=== PATIENT | male | born 1995 | race Caucasian/White ===

== ENCOUNTER 2019-01-01 05:30 | Emergency (ER) | payer BC ==
--- NOTE | 2019-01-01 06:06 | XR ---
EXAM: XR Chest, 2 Views CLINICAL HISTORY: ITS.REASON XR Reason: cough TECHNIQUE: Frontal and lateral views of the chest. COMPARISON: No relevant prior studies available. FINDINGS: Lungs: No consolidation or mass. Pleural space: No effusion. Heart: No cardiomegaly. Mediastinum: Unremarkable. Bones/joints: No acute findings. IMPRESSION: No acute cardiopulmonary process.
--- NOTE | 2019-01-01 06:07 | XR ---
EXAM: XR Abdomen, 1 View CLINICAL HISTORY: ITS.REASON XR Reason: abdominal pain TECHNIQUE: Frontal supine view of the abdomen/pelvis. COMPARISON: No relevant prior studies available. Impression: Gastrointestinal tract: Copious amounts of stool throughout the colon. No dilation. Bones/joints: No acute fracture. No dislocation.
[2019-01-01 06:11] LABS: Basophils # (A) 0.1 k/uL (0-0.2); Basophils % (A) 1 %; Eosinophils # (A) 0.6 k/uL (0-0.7); Eosinophils % (A) 4 %; HCT 48.6 % (39.0-53.0); HGB 16.6 gm/dL (13.0-17.5); Lymphocytes # (A) 1.9 k/uL (1.0-4.8); Lymphocytes % (A) 12 %; MCH 29.6 pg (25.0-35.0); MCHC 34.1 g/dL (31.0-37.0); MCV 86.8 fL (80.0-100.0); Mean Platelet Volume 6.7; Monocytes # (A) 1.1 k/uL (0-1.0); Monocytes % (A) 7 %; Neutrophils # (A) 11.7 k/uL (1.3-7.7); Neutrophils % (A) 75 %; Platelet Count 275 k/uL (150-450); RDW 12.8 % (11.5-15.5); WBC 15.6 k/uL (3.8-10.6)
[2019-01-01 06:15] LABS: Appearance,Urine Clear (Clear); Bilirubin,Urine Negative (Negative); Blood,Urine Negative (Negative); Color,Urine Yellow; Glucose,Urine (UA) Negative (Negative); Ketones,Urine Negative (Negative); Leukocyte Esterase,Urine Negative (Negative); Mucus,Urine Many /hpf; Nitrite,Urine Negative (Negative); PH, Urine 5.5 (5.0-8.0); Protein,Urine 1+ (Negative); RBC,Urine <1 /hpf (0-5); Specific Gravity,Urine 1.035 (1.001-1.035); Squamous Epithelial Cell,Urine <1 /hpf (0-4); WBC,Urine 2 /hpf (0-5)
[2019-01-01 06:19] LABS: ALT 31 U/L (21-72); AST 29 U/L (17-59); Albumin 4.3 g/dL (3.5-5.0); Alkaline Phosphatase 62 U/L (38-126); Amylase 41 U/L (30-110); Anion Gap 9 mmol/L; Blood Urea Nitrogen 11 mg/dL (9-20); Calcium 9.6 mg/dL (8.4-10.2); Carbon Dioxide 27 mmol/L (22-30); Chloride 104 mmol/L (98-107); Glucose 124 mg/dL (74-99); Lipase 76 U/L (23-300); Sodium 140 mmol/L (137-145); Total Bilirubin 0.7 mg/dL (0.2-1.3); Total Protein 7.1 g/dL (6.3-8.2)
[2019-01-01] MEDS ORDERED: SODIUM CHLORIDE 0.9% 2,000 ML IV ONE (06:39)
[2019-01-01] MEDS ORDERED: BISACODYL 10 MG SUPP RECTAL STA (06:40)
[2019-01-01] MEDS ORDERED: LACTULOSE 20 GM/30 ML CUP PO ONE (06:40)
[2019-01-01] MEDS ORDERED: diphenhydrAMINE 50 MG/ML 1 ML VIAL IVP STA (06:40)
[2019-01-01] MEDS ORDERED: METOCLOPRAMIDE 5 MG/ML 2 ML VIAL IVP STA (06:40)
--- NOTE | 2019-01-01 06:40 | ED ---
Nausea/Vomiting/Diarrhea HPI - General Chief complaint: Nausea/Vomiting/Diarrhea Stated complaint: vomiting Source: patient Mode of arrival: ambulatory Limitations: no limitations - History of Present Illness Initial comments: Patient is a previously healthy 23-year-old male who presents the emergency department today for evaluation of my ability. Patient was evaluated approxim ately a week ago for somewhat her symptoms, he was prescribed Zofran which he reports helped somewhat however he continues to have nausea and has had sporadic episodes of vomiting. He reports that he has a long-standing history of migraines and due to the vomiting he's had a migraine for 10 days duration that hasn't responded to [id number] medications. Asians concerned that he may be dehydrated secondary came to the ER for reevaluation. Patient reports that despite having nausea or vomiting he continues to have normal bowel movements he reports a normal soft bowel movement yesterday. He denies any abdominal pain though he does feel bloated. Patient also reports a nonproductive cough. No shortness of breath. No fevers chills chest pain or palpitations. - Related Data Previous Rx's Medication Instructions Recorded Cyclobenzaprine [Flexeril] 10 mg PO TID #20 tab 04/18/16 RX: Naproxen 500 mg PO Q12HR 14 Days tab 04/18/16 Allergies Allergy/AdvReac Type Severity Reaction Status Date / Time radford Allergy Nausea & Verified 01/01/19 05:40 Vomiting & Diarrhea hornet venom Allergy Swelling Verified 04/18/16 10:15 Review of Systems ROS Statement: Those systems with pertinent positive or pertinent negative responses have been documented in the HPI. ROS Other: All systems not noted in ROS Statement are negative. Past Medical History Past Medical History: No Reported History History of Any Multi-Drug Resistant Organisms: None Reported Past Surgical History: Hernia Repair Past Psychological History: No Psychological Hx Reported Smoking Status: Current every day smoker Past Alcohol Use History: None Reported Past Drug Use History: None Reported General Exam - General Exam Comments Initial Comments: Physical Exam GENERAL: Patient is well-developed and well-nourished. Patient is nontoxic and well- hydrated and is in no distress. HENT: Normocephalic, Atraumatic. EYES: PERRL, EOMI PULMONARY: Unlabored respirations. No audible rales rhonchi or wheezing was noted. CARDIOVASCULAR: There is a regular rate and rhythm without any murmurs gallops or rubs. ABDOMEN: Soft and nontender with normal bowel sounds. SKIN: Skin is clear with no lesions or rashes and otherwise unremarkable. : Deferred NEUROLOGIC: Patient is alert and oriented x3. Moving all extremities spontaneously MUSCULOSKELETAL: Normal extremities with adequate strength and full range of motion. No lower extremity swelling or edema. No calf tenderness. PSYCHIATRIC: Normal psychiatric evaluation. Limitations: no limitations Limitations: no limitations Course Vital Signs 01/01/19 01/01/19 05:34 06:54 Temperature 98.2 F 99.2 F Pulse Rate 117 H 90 Respiratory 94 H 18 Rate Blood Pressure 111/73 118/73 O2 Sat by Pulse 95 96 Oximetry Medical Decision Making - Medical Decision Making The patient was seen and evaluated history is obtained from patient and mother bedside Previously healthy 23-year-old gentleman with 10 days of decreased by mouth intake, multiple episodes of nonbloody nonbilious emesis Labs and imaging were ordered Labs with mild leukocytosis likely reactive, electrolytes within normal limits X-ray does reveal copious amount of stool in the colon no acute findings I discussed these results with the patient I advised that I suspect some of his abdominal bloating and possibly even the nausea and vomiting is due to this stool burning. Patient agreeable but symptomatic treatment. Patient reports Zofran hasn't worked well for him I will order Reglan with Benadryl. All questions pertaining care answered return parameters were discussed patient was discharged home in stable condition. - Lab Data Result diagrams: 01/01/19 05:57 01/01/19 05:57 Lab Results 01/01/19 01/01/19 01/01/19 Range/Units 05:57 05:57 05:57 WBC 15.6 H (3.8-10.6) k/uL RBC 5.60 (4.30-5.90) m/uL Hgb 16.6 (13.0-17.5) gm/dL Hct 48.6 (39.0-53.0) % MCV 86.8 (80.0-100.0) fL MCH 29.6 (25.0-35.0) pg MCHC 34.1 (31.0-37.0) g/dL RDW 12.8 (11.5-15.5) % Plt Count 275 (150-450) k/uL Neutrophils % 75 % Lymphocytes % 12 % Monocytes % 7 % Eosinophils % 4 % Basophils % 1 % Neutrophils # 11.7 H (1.3-7.7) k/uL Lymphocytes # 1.9 (1.0-4.8) k/uL Monocytes # 1.1 H (0-1.0) k/uL Eosinophils # 0.6 (0-0.7) k/uL Basophils # 0.1 (0-0.2) k/uL Sodium 140 (137-145) mmol/L Potassium 4.0 (3.5-5.1) mmol/L Chloride 104 (98-107) mmol/L Carbon Dioxide 27 (22-30) mmol/L Anion Gap 9 mmol/L BUN 11 (9-20) mg/dL Creatinine 0.76 (0.66-1.25) mg/dL Est GFR (CKD-EPI)AfAm >90 (>60 ml/min/1.73 sqM) Est GFR (CKD-EPI)NonAf >90 (>60 ml/min/1.73 sqM) Glucose 124 H (74-99) mg/dL Calcium 9.6 (8.4-10.2) mg/dL Total Bilirubin 0.7 (0.2-1.3) mg/dL AST 29 (17-59) U/L ALT 31 (21-72) U/L Alkaline Phosphatase 62 (38-126) U/L Total Protein 7.1 (6.3-8.2) g/dL Albumin 4.3 (3.5-5.0) g/dL Amylase 41 (30-110) U/L Lipase 76 (23-300) U/L Urine Color Yellow Urine Appearance Clear (Clear) Urine pH 5.5 (5.0-8.0) Ur Specific [place] 1.035 (1.001-1.035) Urine Protein 1+ H (Negative) Urine Glucose (UA) Negative (Negative) Urine Ketones Negative (Negative) Urine Blood Negative (Negative) Urine Nitrite Negative (Negative) Urine Bilirubin Negative (Negative) Urine Urobilinogen 2.0 (<2.0) mg/dL Ur Leukocyte Esterase Negative (Negative) Urine RBC <1 (0-5) /hpf Urine WBC 2 (0-5) /hpf Ur Squamous Epith Cells <1 (0-4) /hpf Urine Mucus Many H (None) /hpf Disposition Clinical Impression: Nausea & vomiting, Dehydration, Headache Disposition: HOME SELF-CARE Condition: Stable Instructions (If sedation given, give patient instructions): Acute Nausea and Vomiting (ED) Is patient prescribed a controlled substance at d/c from ED?: No Referrals: None,Stated [Primary Care Provider] - 1-2 days
[2019-01-01 06:56] VITALS: RESP 18
[2019-01-01 08:44] VITALS: BP 117/69; PULSE 102; TEMP 97.7
== END 2019-01-01 08:45 | disposition home or self-care (01) ==
LOC: EC 05:30
DX: R11.2 Nausea with vomiting, unspecified (principal); E86.0 Dehydration; R51 Headache; R19.7 Diarrhea, unspecified; R05 Cough; F17.200 Nicotine dependence, unspecified, uncomplicated; Z86.69 Personal history of other diseases of the nervous system and sense organs; Z91.018 Allergy to other foods; Z91.038 Other insect allergy status
CPT/HCPCS: 36415; 71046; 74018; 80053; 81001; 82150; 83690; 85025; 96361; 96374; 96375; 99284

== ENCOUNTER → 2020-07-04 | Outpatient (CLI) | payer OTHER | END | disposition home or self-care (01) | LOC: LABWHC1 10:14 | PROVIDERS: ATTEND Family Medicine | DX: Z20.828 Contact with and (suspected) exposure to other viral communicable diseases (principal) | CPT/HCPCS: U0003; C9803 ==

== ENCOUNTER → 2021-01-08 | Outpatient (CLI) | payer OTHER ==
[2021-01-08 19:51] LABS: Basophils # (A) 0.05 X 10*3/uL (0.00-0.10); Basophils % (A) 0.5 %; HCT 46.9 % (39.6-50.0); HGB 15.7 g/dL (13.0-17.0); Lymphocytes % (A) 23.5 %; MCH 30.3 pg (27.0-32.0); MCHC 33.5 g/dL (32.0-37.0); MCV 90.5 fL (80.0-97.0); Mean Platelet Volume 10.6 fL (9.5-12.2); Monocytes # (A) 0.84 X 10*3/uL (0.20-1.00); Monocytes % (A) 8.2 %; Neutrophils # (A) 6.62 X 10*3/uL (1.80-7.70); Neutrophils % (A) 64.8 %; Platelet Count 239 X 10*3/uL (140-440); RBC 5.18 X 10*6/uL (4.40-5.60); RDW 12.4 % (11.5-14.5); WBC 10.21 X 10*3/uL (4.50-10.00)
[2021-01-08 21:25] LABS: Erythrocyte Sedimentation Rate 1 mm/Hr (0-15)
[2021-01-09 02:57] LABS: ALT 55 U/L (10-49); AST 36 U/L (14-35); African American GFR (CKD) 143.9 (60.0-200.0); Albumin/Globulin Ratio 1.76 (1.60-3.17); Alkaline Phosphatase 67 U/L (41-126); C Reactive Protein <0.4 mg/dL (0.0-0.8); Calcium 9.6 mg/dL (8.7-10.3); Carbon Dioxide 24.6 mmol/L (21.6-31.8); Chloride 105 mmol/L (96-109); Globulin 2.5 g/dL (1.6-3.3); Glucose 156 mg/dL (70-110); Non-African American GFR(CKD) 124.2 (60.0-200.0); Potassium 4.1 mmol/L (3.5-5.5); Sodium 141 mmol/L (135-145); Total Bilirubin 0.6 mg/dL (0.3-1.2); Total Protein 6.9 g/dL (6.2-8.2)
== END ==
LOC: LABWHC1 10:18 → EDSTATUS 10:42
PROVIDERS: ATTEND Physician Assistant
DX: K52.9 Noninfective gastroenteritis and colitis, unspecified (principal)
CPT/HCPCS: 36415; 80053; 83630; 83993; 85025; 85652; 86140

== ENCOUNTER → 2021-06-23 | Outpatient (CLI) | payer OTHER ==
[2021-06-23 23:34] LABS: HGB 15.1 g/dL (13.0-17.0); MCH 30.1 pg (27.0-32.0); MCHC 34.3 g/dL (32.0-37.0); MCV 87.6 fL (80.0-97.0); Mean Platelet Volume 10.6 fL (9.5-12.2); Platelet Count 237 X 10*3/uL (140-440); RBC 5.02 X 10*6/uL (4.40-5.60); WBC 9.28 X 10*3/uL (4.50-10.00)
[2021-06-23 23:38] LABS: % Iron Saturation 32.58 (15.00-50.00); ALT 65 U/L (10-49); AST 48 U/L (14-35); African American GFR (CKD) 144.6 (60.0-200.0); Albumin 4.5 g/dL (3.8-4.9); Albumin/Globulin Ratio 1.96 (1.60-3.17); Alkaline Phosphatase 74 U/L (41-126); BUN/Creat Ratio 16.47 Ratio (12.00-20.00); Blood Urea Nitrogen 12.8 mg/dL (9.0-27.0); Calcium 9.5 mg/dL (8.7-10.3); Carbon Dioxide 23.6 mmol/L (21.6-31.8); Chloride 106 mmol/L (96-109); Globulin 2.3 g/dL (1.6-3.3); Glucose 103 mg/dL (70-110); Iron 90 ug/dL (65-175); Non-African American GFR(CKD) 124.8 (60.0-200.0); Sodium 141 mmol/L (135-145); Total Iron Binding Capacity 277 ug/dL (228-460); Total Protein 6.8 g/dL (6.2-8.2)
[2021-06-24 00:15] LABS: C Reactive Protein <0.30 mg/dL (0.00-0.80)
[2021-06-24 02:42] LABS: Erythrocyte Sedimentation Rate 1 mm/Hr (0-15)
== END | disposition home or self-care (01) ==
LOC: LABWHC1 15:55
PROVIDERS: ATTEND Physician Assistant
DX: K50.00 Crohn's disease of small intestine without complications (principal)
CPT/HCPCS: 36415; 80053; 82607; 82746; 83540; 83550; 85027; 85652; 86140

== ENCOUNTER → 2021-10-09 | Day surgery (SDC) | payer OTHER ==
[~2021-10-09] MED LIST: GLUCAGON 1 MG/ML VIAL IM STA
[2021-10-09 13:57] VITALS: BP 132/82; PULSE 69; RESP 18
--- NOTE | 2021-10-12 08:38 | MR ---
EXAMINATION TYPE: MR Enterography DATE OF EXAM: 10/09/2021 COMPARISON: None. HISTORY: Crohns disease, abdominal pain. CONTRAST: Standard multiplanar, multisequence imaging of the abdomen is performed without and with IV contrast, patient is injected with 1350 mL intravenous Gadavist gadolinium contrast. Oral Volumen was given as per enterography protocol. FINDINGS: Bowel: Satisfactory distention of the stomach without suspicious wall thickening or enhancement. Duod enal sweep show less than optimal distention without abnormal enhancement. There is abnormal homogene ous symmetric enhancement in the terminal ileum with mild to moderate wall thickening extending susan guously over a long length of the distal ileum to involve pelvic loops. Areas of intramural edema are present. No suspicious dilatation or stricturing clearly seen. No fistula clearly seen. Length of in volvement estimated near 30.0 cm. No additional areas of abnormal enhancement in left sided jejunal l oops. Visualized portion of colon is within normal limits. Other:Visualized lung bases are clear. The liver, gallbladder, spleen, pancreas, both adrenal glands appear within normal limits. No concerning renal mass or hydronephrosis. Visualized osseous structure s are intact. Sacroiliac joints are preserved. No abnormal adenopathy identified. IMPRESSION: Long segment active inflammation involving contiguous long segment of ileum through the t erminal ileum.
== END ==
LOC: RADMRIMAIN 13:34
PROVIDERS: ATTEND Physician Assistant
DX: K50.90 Crohn's disease, unspecified, without complications (principal); K51.90 Ulcerative colitis, unspecified, without complications; Z80.3 Family history of malignant neoplasm of breast; Z82.49 Family history of ischemic heart disease and other diseases of the circulatory system; F17.210 Nicotine dependence, cigarettes, uncomplicated
CPT/HCPCS: 72197; 74183; J1610; A9585

== ENCOUNTER → 2022-03-06 | Outpatient (CLI) | payer OTHER ==
[2022-03-06 17:01] LABS: Basophils # (A) 0.06 X 10*3/uL (0.00-0.10); Basophils % (A) 0.6 %; Eosinophils # (A) 0.22 X 10*3/uL (0.04-0.35); Eosinophils % (A) 2.1 %; HCT 47.9 % (39.6-50.0); Immature Grans, Automated 1.1 %; Lymphocytes # (A) 2.18 X 10*3/uL (0.90-5.00); MCH 29.6 pg (27.0-32.0); MCHC 33.4 g/dL (32.0-37.0); MCV 88.7 fL (80.0-97.0); Mean Platelet Volume 10.4 fL (9.5-12.2); Monocytes # (A) 0.87 X 10*3/uL (0.20-1.00); Monocytes % (A) 8.4 %; NRBC Per 100 WBC 0 /100 WBCS (0.0-0.0); Neutrophils # (A) 6.92 X 10*3/uL (1.80-7.70); Neutrophils % (A) 66.8 %; Platelet Count 228 X 10*3/uL (140-440); RDW 12.6 % (11.5-14.5); WBC 10.36 X 10*3/uL (4.50-10.00)
[2022-03-06 17:11] LABS: African American GFR (CKD) 136.1 (60.0-200.0); Albumin 4.5 g/dL (3.8-4.9); Albumin/Globulin Ratio 1.96 (1.60-3.17); Anion Gap 10.6 mmol/L (10.00-18.00); BUN/Creat Ratio 13.78 Ratio (12.00-20.00); Blood Urea Nitrogen 12.4 mg/dL (9.0-27.0); Calcium 9.2 mg/dL (8.7-10.3); Carbon Dioxide 25.4 mmol/L (20.0-27.5); Globulin 2.3 g/dL (1.6-3.3); Non-African American GFR(CKD) 117.5 (60.0-200.0); Potassium 4.2 mmol/L (3.5-5.5); Total Bilirubin 0.6 mg/dL (0.30-1.20); Total Protein 6.8 g/dL (6.2-8.2)
[2022-03-06 17:17] LABS: Erythrocyte Sedimentation Rate 1 mm/Hr (0-15)
[2022-03-06 17:24] LABS: Hepatitis A Antibody IgM Nonreactive (Nonreactive); Hepatitis B Core IgM Nonreactive (Nonreactive); Hepatitis B Surface Antigen Nonreactive (Nonreactive); Hepatitis C IgG Antibody Nonreactive (Nonreactive)
== END | disposition home or self-care (01) ==
LOC: LABWHC1 09:40
PROVIDERS: ATTEND Physician Assistant
DX: K50.00 Crohn's disease of small intestine without complications (principal)
CPT/HCPCS: 36415; 80053; 80074; 85025; 85652; 86480

== ENCOUNTER → 2022-07-22 | Outpatient (CLI) | payer OTHER ==
[2022-07-22 23:18] LABS: Albumin 4.8 g/dL (3.8-4.9); Albumin/Globulin Ratio 1.76 (1.60-3.17); Anion Gap 12.6 mmol/L (10.00-18.00); BUN/Creat Ratio 16.6 Ratio (12.00-20.00); Blood Urea Nitrogen 12.4 mg/dL (9.0-27.0); Calcium 9.5 mg/dL (8.7-10.3); Carbon Dioxide 25.1 mmol/L (20.0-27.5); Globulin 2.7 g/dL (1.6-3.3); Non-African American GFR(CKD) 125.9 (60.0-200.0); Potassium 3.7 mmol/L (3.5-5.5); Total Bilirubin 0.7 mg/dL (0.30-1.20); Total Protein 7.5 g/dL (6.2-8.2)
[2022-07-22 23:24] LABS: Basophils # (A) 0.07 X 10*3/uL (0.00-0.10); Basophils % (A) 0.7 %; Eosinophils # (A) 0.14 X 10*3/uL (0.04-0.35); Eosinophils % (A) 1.4 %; HCT 46.7 % (39.6-50.0); Immature Grans, Automated 0.7 %; Lymphocytes # (A) 3.41 X 10*3/uL (0.90-5.00); MCH 30.2 pg (27.0-32.0); MCHC 34.3 g/dL (32.0-37.0); MCV 88.1 fL (80.0-97.0); Mean Platelet Volume 9.8 fL (9.5-12.2); Monocytes # (A) 0.96 X 10*3/uL (0.20-1.00); Monocytes % (A) 9.3 %; NRBC Per 100 WBC 0 /100 WBCS (0.0-0.0); Neutrophils # (A) 5.67 X 10*3/uL (1.80-7.70); Neutrophils % (A) 54.9 %; Platelet Count 241 X 10*3/uL (140-440); RDW 12.9 % (11.5-14.5); WBC 10.32 X 10*3/uL (4.50-10.00)
[2022-07-23 00:22] LABS: Erythrocyte Sedimentation Rate 1 mm/Hr (0-15)
== END | disposition home or self-care (01) ==
LOC: LABWHC1 15:51
PROVIDERS: ATTEND Physician Assistant
DX: K50.00 Crohn's disease of small intestine without complications (principal)
CPT/HCPCS: 36415; 80053; 85025; 85652

== ENCOUNTER → 2022-08-10 | Outpatient (CLI) | payer OTHER | END | disposition home or self-care (01) | LOC: LABWHC1 13:07 | PROVIDERS: ATTEND Physician Assistant | DX: K50.90 Crohn's disease, unspecified, without complications (principal) | CPT/HCPCS: 36415 ==

== ENCOUNTER → 2022-08-16 | Outpatient (CLI) | payer OTHER ==
--- NOTE | 2022-08-16 11:58 | NM ---
EXAMINATION TYPE: NM gastric emptying static DATE OF EXAM: 08/16/2022 COMPARISON: MR enterography October 09, 2021 HISTORY: Nausea and vomiting. Following administration of 2.1 mCi Tc 99m Sulfur Colloid with 4 oz scrambled eggs, 2 pieces of toast , 8 oz of water, projection images of the abdomen were obtained 5 minutes post ingestion. Patient Emptying Values 1 Hour 39 % 2 Hours 69 % 3 Hours 88 % 4 Hours 98 % T1/2 is roughly 85 minutes. IMPRESSION: Gastric emptying: No scintigraphic evidence for gastroparesis. Gastric emptying normal percentage values: 30 minutes: <70% of retention (> 30% emptying) suggests abnormally fast emptying. 60 minutes: <90% retention (>10% emptying) is normal; less than 30% retention (>70% emptying) suggest s abnormally rapid emptying. 90 minutes: <65% retention (> 35% emptying) is normal. 120 minutes: <60% retention (> 40% emptying) is normal. 180 minutes: <30% retention (> 70% emptying) is normal. Gastric emptying T-1/2: Solid: The normal range is 60-105 minutes Liquid only: Normal range is 10-45 minutes. Liquid only-children: At 60 minutes, normal range is 44-58 % . Liquid only-infants: At 60 minutes, normal range is 32-64 %. Additional references: Gastric Emptying Scintigraphy [email or web address]://[email or web address]
== END | disposition home or self-care (01) ==
LOC: RADNMMAIN 06:53
PROVIDERS: ATTEND Internal Medicine Gastroenterology
DX: R11.2 Nausea with vomiting, unspecified (principal)
CPT/HCPCS: 78264; A9541

== ENCOUNTER → 2024-01-19 | Outpatient (CLI) | payer BC ==
--- NOTE | 2024-01-20 08:56 | US ---
EXAMINATION TYPE: US scrotum with doppler. Grayscale and color Doppler Duplex imaging performed of dinesh mills scrotum. DATE OF EXAM: 01/19/2024 COMPARISON: NONE CLINICAL INDICATION: Male, 28 years old with history of TESTICULAR PAIN N50.819; Back pain that radia sivan to testicle x 7 years; ?gaps in vertebrae in spine EXAM MEASUREMENTS: TESTICLES: Right Testicle: 4.7 x 2.0 x 3.6 cm Left Testicle: 4.8 x 2.6 x 3.1 cm EPIDIDYMIS HEAD: Right Epididymis: 1.1 x 0.6 x 0.8 cm Left Epididymis: 1.0 x 1.0 x 0.7 cm Doppler performed to assess for testicular vascularity; good bilateral color flow and waveforms are s een. There is no evidence of testicular torsion. Presence of hydroceles: No Presence of varicoceles: No IMPRESSION: 1. No intratesticular masses. 2. no testicular torsion. 3. No epididymal masses or inflammation 4. No hydroceles or varicoceles
== END | disposition home or self-care (01) ==
LOC: RADUSWWP 12:54
PROVIDERS: ATTEND Family Medicine
DX: N50.819 Testicular pain, unspecified (principal); M54.9 Dorsalgia, unspecified
CPT/HCPCS: 76870; 93975